=== PATIENT | male | born 1985 | race Caucasian/White ===

== ENCOUNTER 2018-11-22 18:28 | Emergency (ER) | payer OTHER ==
[~2018-11-22] VITALS: Ht 175.3 cm; Wt 76.7 kg
--- NOTE | 2018-11-22 19:00 | PHYS DOC ---
Past History Past Medical History: HIV, Other Past Surgical History: Other Alcohol Use: Occasionally Drug Use: None Adult General Chief Complaint Chief Complaint: MULTIPLE COMPLAINTS [facility] HPI 33-year-old male presents with right back and arm pain. The patient has known degenerative disc disease. The last 3 days, he has had increased pain in the mid to lower thoracic's. He has paraspinal muscle tenderness from T1-T8 on the right side. He is also had a light burning sensation in his tricep region on the right. Today the patient also started to have some right-sided flank burning that radiated around to his abdomen. The patient is HIV positive. He is taking medications. He is also on Neurontin as needed. He took 600 mg of Neurontin today. He denies any new injury or overuse. He denies fever or chills. Review of Systems Review of Systems Constitutional: Denies fever or chills [] Eyes: Denies change in visual acuity, redness, or eye pain [] HENT: Denies nasal congestion or sore throat [] Respiratory: Denies cough or shortness of breath [] Cardiovascular: No additional information not addressed in HPI [] GI: Denies abdominal pain, nausea, vomiting, bloody stools or diarrhea [] : Denies dysuria or hematuria [] Musculoskeletal: Right sided back pain and right arm pain[] Integument: Denies rash or skin lesions [] Neurologic: Denies headache, focal weakness or sensory changes [] Endocrine: Denies polyuria or polydipsia [] All other systems were reviewed and found to be within normal limits, except as documented in this note. Allergies Allergies Allergies Coded Allergies Type Severity Reaction Last Updated Verified No Known Drug Allergies 11/22/18 No Physical Exam Physical Exam Constitutional: Well developed, well nourished, no acute distress, non-toxic appearance. [] HENT: Normocephalic, atraumatic, bilateral external ears normal, oropharynx moist, no oral exudates, nose normal. [] Eyes: PERRLA, EOMI, conjunctiva normal, no discharge. [] Neck: Normal range of motion, no tenderness, supple, no stridor. [] Cardiovascular:Heart rate regular rhythm, no murmur [] Lungs & Thorax: Bilateral breath sounds clear to auscultation [] Abdomen: Bowel sounds normal, soft, no tenderness, no masses, no pulsatile masses. [] Skin: Warm, dry, no erythema, no rash. [] Back: Tenderness over spinous process T6 to T8. Muscle spasm right side T1-4.[] Extremities: No tenderness, no cyanosis, no clubbing, ROM intact, no edema. [] Neurologic: Alert and oriented X 3, normal motor function, normal sensory function, no focal deficits noted. [] Psychologic: Affect normal, judgement normal, mood normal. [] Current Patient Data Vital Signs Vital Signs Date Time Temp Pulse Resp B/P (MAP) Pulse Ox O2 Delivery O2 Flow Rate FiO2 11/22/18 18:28 97.5 113 18 98 Room Air EKG EKG [] Radiology/Procedures Radiology/Procedures [] Impressions: Preliminary interpretation: No acute fracture in the cervical or thoracic spine. The patient does have multilevel degenerative change of the cervical and thoracic spine. No spondylolisthesis. Course & Med Decision Making Course & Med Decision Making Pertinent Labs and Imaging studies reviewed. (See chart for details) Patient's x-rays are negative for acute findings. I will treat him symptomatically with prednisone. We will give him 50 mg in the ED followed by 3 more days at home. He is stable for discharge at this time. [] Dragon Disclaimer Dragon Disclaimer This electronic medical record was generated, in whole or in part, using a voice recognition dictation system. Departure Departure: Referrals: PCPJENNA (PCP) Scripts Prednisone (PREDNISONE) 10 Mg Tablet 50 MG PO DAILY for radiculopathy for 3 Days, #15 TAB Prov: HORACE MILTON DO 11/22/18 HORACE MILTON DO Nov 22, 2018 19:00
[2018-11-22] MEDS: predniSONE 10 MG TABLET PO ONE (20:06)
[2018-11-22] MEDS ORDERED: PRED-220 PO (20:12)
[2018-11-22 20:18] VITALS: BP 126/74
--- NOTE | 2018-11-22 20:50 | RAD ---
Thoracic spine 3 views, cervical spine 3 views. HISTORY: Pain in neck, sensitivity to touch right arm, numbness in hands intermittently Thoracic spine 3 views were taken of the thoracic spine. The spine is in normal alignment. Disc spaces are normal in height. A fracture is not identified. There is no acute fracture. Cervical spine 3 views were taken of the cervical spine. C-spine is in normal alignment. Disc spaces are normal in height. A fracture is not identified. IMPRESSION: 1. Negative cervical spine. 2. Negative thoracic spine. Electronically signed by: Carlos Malone MD (11/22/2018 8:46 PM) [id number]
== END 2018-11-22 20:20 | disposition home or self-care (01) ==
LOC: ER 18:28
DX: M54.6 Pain in thoracic spine (principal); M79.601 Pain in right arm; M54.2 Cervicalgia; M51.34 Other intervertebral disc degeneration, thoracic region
CPT/HCPCS: 72040; 72072; 99283; J7512